=== PATIENT | male | born 1955 | race American Indian/Alaskan Native ===

== ENCOUNTER 2021-02-04 05:45 | Day surgery (SDC) | payer OTHER ==
[2021-01-29 11:11] LABS: Alanine Aminotransferase 24 units/L (7-56); Albumin 4.1 g/dL (3.9-5); Blood Urea Nitrogen 11 mg/dL (9-20); Calcium 9.2 mg/dL (8.4-10.2); Hemolysis Index 4
[2021-01-29 11:22] LABS: BUN/Creatinine Ratio 16
[2021-01-29 15:21] LABS: Hematocrit 45.9 % (35.5-45.6); Hemoglobin 14.7 gm/dl (11.8-15.2); Mean Corpuscular HGB Conc 32 % (32-34); Mean Corpuscular Volume 88 fl (84-94); Platelet Count 270 K/mm3 (140-440); Red Blood Count 5.25 M/mm3 (3.65-5.03); Red Cell Distribution Width 14.9 % (13.2-15.2)
[2021-02-04] MEDS ORDERED: MIDAZOLAM 2 MG/2 ML INJ IV NR ×2 (06:00→08:00)
[2021-02-04] MEDS ORDERED: LACTATED RINGERS 1,000 ML IV SCH (06:00)
[2021-02-04] MEDS ORDERED: LIDOCAINE MPF (2%) 20 MG/1 ML VIAL 5 ML ONE (07:20)
[2021-02-04] MEDS ORDERED: MIDAZOLAM 2 MG/2 ML INJ ONE (07:20)
[2021-02-04] MEDS ORDERED: propofoL 200 MG/20 ML VIAL IV ONE (07:21)
[2021-02-04] MEDS ORDERED: fentaNYL 100 MCG/2 ML INJ ONE (07:21)
--- NOTE | 2021-02-04 07:29 | Anesthesia Consultation ---
Anesthesia Consult and Med Hx Date of service: 02/04/21 - Airway Anesthetic Teeth Evaluation: Dentures (full upper and lower) ROM Head & Neck: Adequate Mental/Hyoid Distance: Adequate Mallampati Class: Class III Intubation Access Assessment: Possibly Difficult - Pre-Operative Health Status ASA Pre-Surgery Classification: ASA3 Proposed Anesthetic Plan: General - Pulmonary Hx Smoking: Yes (former smoker quit 1980s) Hx Respiratory Symptoms: No Hx Sleep Apnea: Yes (no CPAP) - Cardiovascular System Hx Hypertension: Yes (took amlodipine this morning) Hx Heart Attack/AMI: No Hx Percutaneous Transluminal Coronary Angioplasty (PTCA): No - Central Nervous System CVA: No Hx Back Pain: Yes Hx Psychiatric Problems: Yes (PTSD) - Endocrine Hx Renal Disease: No Hx Liver Disease: Yes (hx HCV s/p treatment) Hx Non-Insulin Dependent Diabetes: Yes Hx Thyroid Disease: No - Additional Comments Anesthesia Medical History Comments: No hx anesthetic complications.
--- NOTE | 2021-02-04 07:30 | Anesthesia Day of Surgery ---
Anesthesia Day of Surgery - Day of Surgery Patient Examined: Yes Patient H&P Reviewed: Yes Patient is NPO: Yes
[2021-02-04] MEDS ORDERED: LIDOCAINE (1%) 10 MG/1 ML VIAL 20 ML MDV ONE (07:41)
[2021-02-04] MEDS ORDERED: BUPIVACAINE/PF (0.25%) 2.5 MG/ML 30 ML VIAL INFILTRATI ONE (07:41)
[2021-02-04] MEDS ORDERED: HYDROcodone/ACETAMINOPHEN 5-325 MG TAB PO PRN (08:00)
[2021-02-04] MEDS ORDERED: ceFAZolin/Water 2 GM/20 ML 2 GM/20 ML SYRINGE IV SCH (08:00)
[2021-02-04] MEDS ORDERED: HYDROmorphone 1 MG/1 ML INJ IV PRN (08:00)
[2021-02-04] MEDS ORDERED: KETAMINE/STERILE WATER 50 MG/ML SYRINGE ONE (08:03)
[2021-02-04] MEDS ORDERED: dexAMETHasone 20 MG/5 ML VIAL ONE (08:03)
[2021-02-04] MEDS ORDERED: ceFAZolin/Water 2 GM/20 ML 2 GM/20 ML SYRINGE IV ONE (08:03)
[2021-02-04] MEDS ORDERED: ONDANSETRON 4 MG/2 ML INJ ONE (08:03)
[2021-02-04] MEDS ORDERED: ePHEDrine SULFATE 50 MG/1 ML INJ ONE (08:53)
[2021-02-04] MEDS ORDERED: SODIUM CHLORIDE 0.9% IRR 1,500 ML BOTTLE IR ONE (09:10)
[2021-02-04] MEDS ORDERED: SODIUM CHLORIDE P/F VIAL 10 ML 10 ML ONE (09:17)
[2021-02-04 10:48] VITALS: BP 148/70
--- NOTE | 2021-02-04 11:02 | Post Operative Note ---
Date of procedure: 02/04/21 Pre-op diagnosis: r hydrocele Post-op diagnosis: same Findings: huge Procedure: r hydrocelctomy Anesthesia: GETA Surgeon: BEATRICE REYES Estimated blood loss: minimal Pathology: list (sac) Specimen disposition: to lab Condition: stable Disposition: PACU
--- NOTE | 2021-02-04 11:05 | Discharge Summary ---
Short Stay Discharge Plan Activity: no restrictions, other (no strainuing ) Weight Bearing Status: Full Weight Bearing Diet: regular Durable Medical Equipment Needed Upon Discharge: other (dressing chnaged home with drain ) Additional Instructions: KEEP DRESSING CLEAN AND DRY. HOME WITH DRAIN. Follow up with: [facility] [Primary Care Provider] - 7 Days Forms: Outpatient Surgery DC Inst.
--- NOTE | 2021-02-04 11:34 | Operative Report ---
DATE OF SURGERY: 02/04/2021 PREOPERATIVE DIAGNOSES: Very large right hydrocele. POSTOPERATIVE DIAGNOSES: Very large right hydrocele. PROCEDURES: Right hydrocelectomy. SURGEON: Tyron Dickens M.D. ANESTHESIA: General. FINDINGS: This is a gentleman with a large fluid collection in the right hemiscrotum, now presents for repair. He has intermittent pain. DESCRIPTION OF PROCEDURE: The patient was brought to the operating room and placed on the operating table. Following induction of anesthesia, placed in the supine position, prepped and draped in usual sterile fashion. An oblique incision made over the scrotum, carried down to the tunica. Superficial vessels were tied and ligated. The tunica was opened and couple of prominent vessels, which were ligated and once we emptied about 125 mL of clear fluid, the repair was done by oversewing the tunica and imbricating it over the tunica albuginea. The patient tolerated the procedure well. A [place] was placed in the dependent portion. Minimal blood loss, less than 5 mL. The patient tolerated the procedure well. Closure was with 3-0 and 2-0 chromic. The drain was secured, brought to recovery in stable condition. TID: [id number] RECEIPT: [id number] [place]/[facility] B[facility]
--- NOTE | 2021-02-04 11:41 | Post Anesthesia Evaluation ---
- Post Anesthesia Evaluation Patient Participated: Yes Airway Patent: Yes Stable Respiratory Function: Yes Nausea/Vomiting: No Temp > 96.8F: Yes Pain Manageable: Yes Adequeate Hydration: Yes Anesthesia Complications: No
== END 2021-02-04 11:20 | disposition home or self-care (01) ==
LOC: OR 05:45
PROVIDERS: ATTEND Urology
DX: N43.2 Other hydrocele (principal); I10 Essential (primary) hypertension; G47.30 Sleep apnea, unspecified; E78.00 Pure hypercholesterolemia, unspecified; E11.9 Type 2 diabetes mellitus without complications; Z79.84 Long term (current) use of oral hypoglycemic drugs; Z79.899 Other long term (current) drug therapy; Z87.891 Personal history of nicotine dependence; Z98.890 Other specified postprocedural states; Z20.822 Contact with and (suspected) exposure to COVID-19
CPT/HCPCS: 36415; 55040; 80053; 82962; 83735; 85027; 88302; J0690; J1100; J2250; J2405; J2704; J3010; J3490; J7120; U0003